=== PATIENT | female | born 1975 | race Caucasian/White ===

== ENCOUNTER → 2017-08-09 | Outpatient (CLI) | payer OTHER ==
[2015-03-10 12:59] VITALS: BP 120/73
[~2017-08-09] MED LIST: HYDR-971 PO
--- NOTE | 2017-08-09 15:15 | RAD ---
DATE: August 09, 2017 EXAM: MAMMO FACUNDO PEBBLES BARTHAT, BREAST RIGHT HISTORY: Baseline diagnostic mammogram. History of right axillary lump. Recently diagnosed with uterine cancer. COMPARISON: None. Baseline study. This study was interpreted with the benefit of Computerized Aided Detection (CAD). 2-D digital mammographic views of both breasts were performed in the CC and MLO projections. 3-D digital tomosynthesis of both breasts were performed in the CC and MLO projections and reviewed on a computer workstation. FINDINGS: The breast parenchyma is heterogeneously dense. The right axillary lump was marked with a BB. This corresponds to a lymph node with benign central fatty replacement. There is a nodule of the upper medial quadrant of the right breast seen on MLO facundo slice 44 and CC facundo 50 located 3 to 4 cm from the nipple and measuring 10 mm in size. No clustering of pleomorphic microcalcifications are evident on either side. RIGHT BREAST SONOGRAPHY: High-resolution sonography of the upper medial quadrant of the right breast was performed. At the 12:00 position 3 cm from the nipple, an 11 mm hypoechoic nodule is seen with microlobulations and irregular margins. No abnormal internal color Doppler flow is seen. This nodule is indeterminate and would correspond to the mammographic finding. Sonography of the right axillary region in the region of the palpable breast lump was performed. There is a 1.3 cm lymph node which demonstrates normal lymph node sonographic architecture. IMPRESSION: 11 mm indeterminate hypoechoic nodule of the 12:00 position of the right breast. Recommend ultrasound-guided core biopsy of this nodule for further evaluation. This finding and recommendation for biopsy was given to the patient by the ophthalmic medical technologist, Nayeli after completion of the study on August 09, 2017. I interpreted this study offsite. The ophthalmic medical technologist told the patient to call her physician's office for further instructions as well. In addition, I attempted to call the physician's office on 08/09/2017 but the office was closed. No voicemail could be given. Another attempt at calling the office will be made the next day. Palpable lump of the right axillary region corresponds to a benign-appearing lymph node. Therefore, follow-up should be clinical. BI-RADS CATEGORY: 4 SUSPICIOUS ABNORMALITY-BIOPSY SHOULD BE CONSIDERED RECOMMENDED FOLLOW-UP: BIO BIOPSY RECOMMENDED PQRS compliance statement: Patient information was entered into a reminder system with a target due date now for the biopsy. Mammography is a sensitive method for finding small breast cancers, but it does not detect them all and is not a substitute for careful clinical examination. A negative mammogram does not negate a clinically suspicious finding and should not result in delay in biopsying a clinically suspicious abnormality. "Our facility is accredited by the [employer] Mammography Program." The patient's breast density may affect the ability of mammography to detect breast cancer. There are 4 categories of breast density, A, B, C and D. Breast density A means that most of the breast tissue is replaced with adipose tissue and therefore is not dense. Breast density B means that the breast tissue is mildly dense and scattered. Breast density C means that the breast tissue is heterogeneously dense. Breast density D means that the breast tissue is very dense. Breast densities especially C and D may decrease the sensitivity of mammography to detect breast cancer. Therefore, the patient may benefit from 3-D breast mammography (3D breast tomography) as a part of their screening mammogram. Insurance may or may not pay for this additional imaging. The patient's breast density based on today's mammogram is category C.
== END | disposition home or self-care (01) ==
LOC: MAMMO 12:41
PROVIDERS: ATTEND Nurse Practitioner Family
DX: N63.10 Unspecified lump in the right breast, unspecified quadrant (principal)
CPT/HCPCS: 76641; 77066; G0279; 77062

== ENCOUNTER 2018-02-10 06:13 | Emergency (ER) | payer OTHER ==
[~2018-02-10] VITALS: Ht 162.6 cm; Wt 81.6 kg
[2018-02-10] MEDS ORDERED: MORP15TA PO (06:39)
--- NOTE | 2018-02-10 06:39 | PHYS DOC ---
Past History Past Medical History: Anxiety Past Surgical History: Alcohol Use: None Drug Use: None Adult General Chief Complaint Chief Complaint: chills and myalgias HPI HPI This is a pleasant 42-year-old female with a history of uterine cancer who presents the emergency department after taking chemotherapy approximately for 5 days ago. She reports being on Taxol and can't remember the other medication name. She has pain diffusely through her body there is a throbbing aching moderate to severe pain rated is intermittent. She reports this is fairly typical for her chemotherapeutic agents. She also feels chills but has not had a fever at home. Review of systems is negative for chest pain shortness of breath abdominal pain nausea vomiting fevers or chills. All other review of systems is negative unless otherwise noted in history of present illness. ED course: 42-year-old female presenting the emergency department today with generalized myalgias. On arrival she is afebrile and well-appearing. Heart rate is within normal limits. Blood work sent. Urinalysis ordered. Patient was given oral morphine for her pain. blood work shows moderate leukopenia with mild neutropenia. Pt remains afebrile and is feeling better from the oral morphine. Plan to d/c with pcp f/u. The patient has been examined and was not found to have an emergency medical condition. The patient was then discharged home in stable condition to follow up with their primary care physician over the next 2- 3 days. They were to return if their symptoms worsened or if they were concerned for any reason. They were also instructed to return to the emergency department if they were unable to get the recommended and appropriate follow- up. [id number] discharge instructions and return precautions were given. Patient's questions were answered to their satisfaction. Patient is comfortable with plan. Review of Systems Review of Systems SEE ABOVE. Current Medications Current Medications Current Medications Medications (Trade) Dose Ordered Sig/Anthony Start Time Stop Time Status Last Admin Dose Admin Morphine Sulfate (Morphine Ir) 15 mg 1X ONCE 02/10/18 06:45 02/10/18 06:46 UNV Allergies Allergies Allergies Coded Allergies Type Severity Reaction Last Updated Verified No Known Drug Allergies 03/10/15 No Physical Exam Physical Exam SEE ABOVE Constitutional: Well developed, well nourished, no acute distress, non-toxic appearance. [] HENT: Normocephalic, atraumatic, bilateral external ears normal, oropharynx moist, no oral exudates, nose normal. [] Eyes: PERRLA, EOMI, conjunctiva normal, no discharge. [] Neck: Normal range of motion, no tenderness, supple, no stridor. [] Cardiovascular:Heart rate regular rhythm, no murmur [] Lungs & Thorax: Bilateral breath sounds clear to auscultation [] Abdomen: Bowel sounds normal, soft, no tenderness, no masses, no pulsatile masses. [] Skin: Warm, dry, no erythema, no rash. [] Back: No tenderness, no CVA tenderness. [] Extremities: No tenderness, no cyanosis, no clubbing, ROM intact, no edema. [] Neurologic: Alert and oriented X 3, normal motor function, normal sensory function, no focal deficits noted. [] Psychologic: Affect normal, judgement normal, mood normal. [] EKG EKG [] Radiology/Procedures Radiology/Procedures [] Course & Med Decision Making Course & Med Decision Making Pertinent Labs and Imaging studies reviewed. (See chart for details) [] Dragon Disclaimer Dragon Disclaimer This electronic medical record was generated, in whole or in part, using a voice recognition dictation system. Departure Departure: Impression: Primary Impression: Myalgia Disposition: 01 HOME, SELF-CARE Condition: STABLE Referrals: VANDA RENE MD (PCP) Patient Instructions: Chemotherapy, Myalgia, Adult Additional Instructions: Thank you for allowing us to participate in your care today. Return to the emergency department you have any new or worsening symptoms, or if you are concerned for any reason. Return to emergency department if you have any new or concerning symptoms including but not limited to fever, chills, nausea, vomiting, intractable pain, any new rashes, chest pain, shortness of air , uncontrolled bleeding, difficulty breathing, and/or vision loss. Follow up with your primary care physician within 3 days. Call your Primary Doctor tomorrow and inform them of your visit today. If you do not have a primary care provider we are happy to provide you with a list of our primary care providers contact information. This condition should be evaluated by your primary care physician and any recommended consulting services for continued management within 2-3 days after discharge. If at any time, you are having difficulty getting into your primary care doctor or a specialist, return to the emergency department. You may have been prescribed medication or given medication in the emergency department that can change in your level of thinking and ability to operate machinery. Many prescribed medications can cause this. Some commonly prescribed medications include hydrocodone, ativan, and benadryl. Be sure to check with your pharmacist and ask if the medications you've prescribed can affect your level of consciousness. I recommend not operating heavy machinery or driving while on medication such as these. Scripts Morphine Sulfate (MORPHINE SULFATE) 15 Mg Tablet 1 TAB PO PRN Q8HRS PRN for SEVERE PAIN, #8 TAB Be careful as this medication may make you sleepy or drowsy. Do not drive or operate heavy machinery on this medication. Be sure to ask the pharmacist about other side effects that can exist such as constipation. Prov: GIBRAN GALVEZ MD 02/10/18 GIBRAN GALVEZ MD Feb 10, 2018 06:39
[2018-02-10] MEDS ORDERED: MORPHINE IR 15 MG TABLET PO ONE (06:45)
[2018-02-10 07:07] LABS: BASO % 1 % (0-3); EOS # 0.1 x10^3/uL (0.0-0.7); EOS % 3 % (0-3); HEMATOCRIT 38.4 % (36.0-47.0); HEMOGLOBIN 13.5 g/dL (12.0-15.5); LYMPH # 0.4 x10^3/uL (1.0-4.8); LYMPH % 20 % (24-48); MEAN CORPUSCULAR HEMOGLOBIN 35 pg (25-35); MEAN CORPUSCULAR HGB CONC 35 g/dL (31-37); MEAN CORPUSCULAR VOLUME 100 fL (79-100); MONO # 0.1 x10^3/uL (0.0-1.1); MONO % 4 % (0-9); NEUT # 1.4 x10^3uL (1.8-7.7); NEUT % 72 % (31-73); PLATELET COUNT 194 x10^3/uL (140-400); RED BLOOD COUNT 3.83 x10^6/uL (3.50-5.40); RED CELL DISTRIBUTION WIDTH 14.1 % (11.5-14.5)
[2018-02-10 07:14] LABS: ALBUMIN 3.8 g/dL (3.4-5.0); CALCIUM 9.3 mg/dL (8.5-10.1); CREATININE 0.8 mg/dL (0.6-1.0); GFR 78.7; POTASSIUM 3.9 mmol/L (3.5-5.1); TOTAL BILIRUBIN 0.4 mg/dL (0.2-1.0); TOTAL PROTEIN 7.7 g/dL (6.4-8.2)
[2018-02-10 07:31] LABS: CLARITY,URINE CLOUDY; COLOR,URINE YELLOW
[2018-02-10 07:32] LABS: BILIRUBIN,URINE NEG (NEG); GLUCOSE,URINE NEG (NEG); NITRITE,URINE NEG (NEG); UROBILINOGEN,URINE 0.2 mg/dL (0.2 mg/dL)
[2018-02-10 07:49] VITALS: BP 122/85
[2018-02-10 08:30] LABS: % BANDS 1 % (0-9); % BASOS 2 % (0-3); % EOS 6 % (0-5); % LYMPHS 22 % (24-48); % MONOS 8 % (0-10); % SEGS 60 % (35-66)
[2018-02-10 08:31] LABS: PLT ESTIMATE ADEQUATE (ADEQUATE)
[2018-02-10 08:32] LABS: PLATELET CLUMP PRESENT
[2018-02-10 08:33] LABS: POLYCHROMASIA SLIGHT
[2018-02-10 08:34] LABS: TOXIC GRANULATION SLIGHT
== END 2018-02-10 07:51 | disposition home or self-care (01) ==
LOC: ER 06:13
DX: M79.1 Myalgia (principal); T45.1X5A Adverse effect of antineoplastic and immunosuppressive drugs, initial encounter; F41.9 Anxiety disorder, unspecified; D72.819 Decreased white blood cell count, unspecified; C55 Malignant neoplasm of uterus, part unspecified; Z92.21 Personal history of antineoplastic chemotherapy; Y92.89 Other specified places as the place of occurrence of the external cause
CPT/HCPCS: 36415; 80053; 81003; 85007; 85025; 99284